=== PATIENT | male | born 1995 | race Caucasian/White ===

== ENCOUNTER 2020-04-20 08:00 | Outpatient (RCR) | payer OTHER, SELFPAY ==
--- NOTE | 2020-04-19 08:24 | OTOPEVAL ---
EVALUATION REPORT AND DISCHARGE SUMMARY 04/19/20 Patient presents for outpatient OT evaluation after being admitted to the ICU x9 days following a seizure, skull fracture, and brain bleed. He and his girlfriend both report that he is improving with strength and endurance every day. OT evaluation reveals intact, symmetrical, and functional strength and coordination of bilateral UEs. Oculo-motor and visual perceptual assessments show no abnormalities. Recommended to the patient to gradually increase his activity levels regarding his functional endurance in prep for return to work. No skilled OT is indicated at this time. Thank you for referring Jordi Neville to [facility] [place].? Please review, sign, date and return this D/C ELSA. I agree with and certify that the following plan of care is medically necessary. Referring Physician Date Referring Provider: Adiel Joshi, DO *OT Outpatient Evaluation Therapy Assessment Status Assessment Status Assessment Status Evaluation Outpatient Past Medical History Neurological History Hx Seizures Yes: 03/18/20 Musculoskeletal History Hx Fractures Yes: Right elbow 2017; Skull fx after seizure 2020 Other History Hx Cancer Yes: Skin CA, removed Evaluation Information Problem Diagnosis seizure, skull fracture, brain bleed Onset 03/18/20 Subjective Information Patient reports that he spent Query Text:As Reported By Patient/ 9 days in the ICU following Family seizure and fall where he sustained a left posterior skull fracture. He states that he did not need to have surgery. Functionally he reports having generalized weakness, some blurred vision when trying to read, and sometimes having difficulty thinking of words. He and his girlfriend report that he is improving daily. 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
--- NOTE | 2020-04-19 10:09 | PTOPEVAL ---
PHYSICAL THERAPY EVALUATION AND DISCHARGE 04-19-20 Thank you for referring Jordi Neville to [facility].? The PT evaluation was completed today, he was issued home exercises and education was provided on gradual increase in activity level. Please review, sign, date and return this discharge ELSA. I agree with and certify that the following plan of care is medically necessary. Referring Physician Date Attending Provider: Adiel Joshi, *PT Outpatient Evaluation Document 04/19/20 09:00 IVAN (Rec: 04/19/20 10:03 IVAN [id number]) Outpatient Past Medical History Past Medical History Source of Past Medical History Recalled from Previous Visit, Confirmed with Patient/Family Neurological History Hx Seizures Yes: 03/18/20--med control Cardiovascular History Hx Cardiac Disorders No Significant History Respiratory History Hx Respiratory Disorders No Significant History Musculoskeletal History Hx Fractures Yes: Right elbow 2017; Skull fx after seizure 2020 Hematological History Hx Hematological Disorders No Significant History Endocrine History Hx Endocrine Disorders No Significant History HEENT History Hx HEENT Disorders No Significant History Other History Hx Cancer Yes: Skin CA, removed Evaluation Information Problem Diagnosis seizure disorder Onset 03-18-20 Subjective Information fell with skull fracture and Query Text:As Reported By Patient/ seizure; no surgery; on Family meds for seizure Prior Level of Function Activity Level (Last 3 Months) Occupation work at [employer], lift up to 50#; 12 hour shifts Activity of Daily Living Ability Independent Indoor/Home Mobility Independent Community Mobility Independent Stairs Ability Independent Functional Cognition (Planning, Shopping Independent , Taking Medications) Cooking Yes Cleaning Yes Laundry Yes Shopping Yes Driving Yes Comments Additional Prior Level of Function prior to seizure--active and Comments not limitations in actiivty level; snow board, skate board , active and working 12 hour shifts; since seizure, resting and gradual increase with activity level: walking dog about 1/2 mile, watch TV about 4 hours; after about 45 minutes of activity, need to rest 5-10
--- NOTE | 2020-04-20 09:39 | STOPEVAL ---
Outpatient Speech Therapy Evaluation and Discharge: Patient presents for outpatient ST evaluation after being admitted to the ICU x9 days following a seizure, skull fracture, and brain bleed. He and his spouse report that he seems to be improving every day with recall and memory. Upon completion of (SCATBI) Scales of Cognitive Ability for Traumatic Brain Injury, it has been determine that Jordi's cognitive linguistic skills are within functional limits; therefore, no further speech therapy is warranted at this time. Please review, sign, date and return this discharge ELSA. I agree with and certify that the following plan of care is medically necessary. Referring Physician Date Attending Provider & Referring Provider: Adiel Joshi, DO *ST Outpatient Evaluation Therapy Assessment Status Assessment Status patient Past Medical History Past Medical History Source of Past Medical History Recalled from Previous Visit, Confirmed with Patient/Family Neurological History Hx Seizures Yes: 03/18/20--med control Cardiovascular History Hx Cardiac Disorders No Significant History Respiratory History Hx Respiratory Disorders No Significant History Musculoskeletal History Hx Fractures Yes: Right elbow 2017; Skull fx after seizure 2020 Hematological History Hx Hematological Disorders No Significant History Endocrine History Hx Endocrine Disorders No Significant History HEENT History Hx HEENT Disorders No Significant History Other History Hx Cancer Yes: Skin CA, removed Evaluation Information Problem Diagnosis seizure, skull fracture, brain bleed Onset 03-18-20 Cause cause of seizure is unknown Additional Evaluation Detail Pt had a seizure which resulted in a fall with a subsequent brain bleed and skull fracture. No surgery but he is now on seizure medication. Prior to seizure, pt was independent with all activities of daily living. Subjective Information pt is very pleasant and Query Text:As Reported By Patient/ cooperative. he is motivated Family to drive again and eventually wants to return to work. 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
== END 2020-07-05 10:03 | disposition home or self-care (01) ==
LOC: ANHST 08:00
PROVIDERS: PCP Family Medicine; Referring Provider Family Medicine; Visit Provider Family Medicine
DX: G40.909 Epilepsy, unspecified, not intractable, without status epilepticus (principal); S02.91XD Unspecified fracture of skull, subsequent encounter for fracture with routine healing
CPT/HCPCS: 96125; 97161; 97165

== ENCOUNTER 2022-10-10 15:41 | Emergency (ER) | payer OTHER, SELFPAY ==
--- NOTE | ~2022-10-10 | XR_ITS ---
EXAMINATION: XR chest 2V Exam Date/Time: 10/10/2022 16:13 CDT HISTORY: palpitations Comparison: None. RESULT: Lines, tubes, and devices: None. Lungs and pleura: Clear. Cardiomediastinal silhouette: Stable. Other: No acute osseous or upper abdominal finding. IMPRESSION: No acute cardiopulmonary process. Reviewed, dictated and finalized at location K.
--- NOTE | 2022-10-10 15:43 | ECG_ITS ---
Measurements Intervals [place] Rate: 88 P: 81 NC: 160 QRS: 63 QRSD: 94 T: 62 QT: 336 QTc: 407 Interpretive Statements SINUS RHYTHM EARLY REPOLARIZATION [ST ELEVATION WITH NORMALLY INFLECTED T-WAVE] OTHERWISE NORMAL ECG NO PREVIOUS ECG AVAILABLE FOR COMPARISON Electronically Signed On 10-11-2022 9:14:39 CDT by Jeff Sanchez M.D.
[2022-10-10 16:08] VITALS: BP 155/85; PULSE 87; RESP 16; TEMP 36.9; O2SAT 100
[2022-10-10 16:25] LABS: Basophils Absolute Auto 0.1 K/mm3 (0.0-0.1); Basophils Percent Auto 1.1 % (0.2-1.2); Eosinophils Absolute Auto 0.1 K/mm3 (0-0.3); Eosinophils Percent Auto 0.9 % (0-4.4); Hematocrit 39.6 % (42.0-52.0); Immature Granulocyte Absolute 0.01 K/mm3 (0.00-0.031); Immature Granulocyte Percent A 0.2 % (0-0.5); Lymphocytes Absolute Auto 1.44 K/mm3 (0.9-3.2); Lymphocytes Percent Auto 26.8 % (18.3-44.2); Mean Corpuscular HGB Conc 35.4 g/dl (32-36); Mean Corpuscular Hemoglobin 32.6 pg (26-34); Mean Corpuscular Volume 92.1 fl (80-100); Mean Platelet Volume 8.9 fl (7.4-10.4); Monocytes Absolute Auto 0.5 K/mm3 (0.1-0.6); Neutrophils Absolute Auto 3.3 K/mm3 (1.3-6.7); Platelet Count Result 249 k/mm3 (150-375); Red Cell Distribution Width 11.2 % (11.5-14.5); White Blood Count 5.4 K/mm3 (4.5-10.0)
[2022-10-10 16:35] LABS: Alanine Aminotransferase 34 U/L (6-50); Albumin Level 4.8 g/dL (3.5-5.1); Alkaline Phosphatase 54 U/L (38-126); Anion Gap 13 mmol/L (8-16); Aspartate Amino Transferase 33 U/L (17-59); Bilirubin,Total 0.8 mg/dL (0.2-1.3); Blood Urea Nitrogen 15 mg/dL (9-20); Calcium 9.4 mg/dL (8.4-10.2); Carbon Dioxide 22 mmol/L (22-30); Chloride 100 mmol/L (98-107); Estimated CRCL calculation 128 ml/min; Estimated Glomerular Filt Rate > 60; Glucose 89 mg/dL (65-110); Lipase 67 U/L (23-300); Potassium 3.9 mmol/L (3.4-5.0); Sodium 135 mmol/L (137-145)
[2022-10-10 16:44] LABS: Prothrombin Time 13.3 Seconds (11.1-14.7)
[2022-10-10 16:46] LABS: Partial Thromboplastin Time 31.3 SECONDS (22.3-36.8); Troponin I < 0.012 ng/mL (0.000-0.034)
[2022-10-10 17:15] LABS: D Dimer 0.28 ug/mL (<0.48)
[2022-10-10 20:29] VITALS: BP 146/85; PULSE 67; RESP 15; TEMP 36.4; O2SAT 100
[2022-10-10 20:59] LABS: Troponin I < 0.012 ng/mL (0.000-0.034)
[2022-10-10 22:59] VITALS: BP 153/97; PULSE 64; PULSE 71; RESP 13; O2SAT 100
[2022-10-10 23:31] VITALS: PULSE 58; RESP 12; O2SAT 100
[2022-10-10 23:59] LABS: Troponin I < 0.012 ng/mL (0.000-0.034)
[2022-10-11 00:15] LABS: Magnesium 2.2 mg/dL (1.6-2.3)
--- NOTE | 2022-10-11 00:37 | ED.GENADULT ---
HPI - General Adult General Chief complaint: Arrhythmia/Palpitations Stated complaint: having heart issues Time Seen by Provider: 10/10/22 23:23 History of Present Illness HPI narrative: Patient is a 26-year-old gentleman who presents the emergency department with chief complaint of palpitations. Patient states that for several days has been having a feeling as though his heart is been beating heavy patient did have an episode where he felt as though his heart was beating fast he did get diaphoretic and reports that he felt lightheaded the patient states it lasted about 30 minutes several days ago and the patient since then has been feeling this way. Patient denies chest pain denies syncope patient reports no prior history of inheritable diseases denies history of Marfan's or other diagnosed protein C protein S deficiency history of clotting. Related Data Allergies Allergy/AdvReac Type Severity Reaction Status Date / Time No Known Allergies Allergy Verified 10/10/22 23:01 Review of Systems Review of Systems: A 10 system review of systems was completed on the patient and is negative except for what is stated in the HPI. Nursing and ancillary documentation was reviewed. Exam Narrative: GENERAL: Well-appearing, well-nourished, and in no acute distress. HEAD: Normocephalic, atraumatic. EYES: PERRLA and EOMI. ENT: Nares clear, no rhinorrhea or epistaxis. Mucous membranes moist. NECK: Supple. CHEST: Clear to auscultation. No respiratory distress. HEART: Regular rate and rhythm. No murmur heard. Normal peripheral pulses. ABDOMEN: Soft, nontender, nondistended, normal active bowel sounds. EXTREMITIES: Normal range of motion. No edema. SKIN: Warm, dry, no rash. NEURO: No focal deficits. Alert and oriented x3. PSYCH: Normal mood and affect. Course Vital Signs Vital signs: Vital Signs Temperature 36.9 C 10/10/22 16:08 Pulse Rate 87 10/10/22 16:08 Respiratory Rate 16 10/10/22 16:08 Blood Pressure 155/85 H 10/10/22 16:08 Pulse Oximetry 100 10/10/22 16:08 Temperature 36.4 C L 10/10/22 20:29 Pulse Rate 58 L 10/10/22 23:31 Respiratory Rate 12 10/10/22 23:31 Blood Pressure 153/97 H 10/10/22 22:59 Pulse Oximetry 100 10/10/22 23:31 Medical Decision Making MDM Narrative Medical decision making narrative: Differential diagnosis includes electrolyte abnormality, dehydration, dysrhythmia Laboratory studies were obtained which are within normal limits potassium was 3.9 magnesium was 2.2 troponin was less than 0.012 for both 0-hour and 3-hour Chest x-ray showed no focal infiltrate EKG showed early repolarization with a rate of 88 Vital Signs Vital Signs: Vital Signs Temperature 36.9 C 10/10/22 16:08 Pulse Rate 87 10/10/22 16:08 Respiratory Rate 16 10/10/22 16:08 Blood Pressure 155/85 H 10/10/22 16:08 Pulse Oximetry 100 10/10/22 16:08 Temperature 36.4 C L 10/10/22 20:29 Pulse Rate 58 L 10/10/22 23:31 Respiratory Rate 12 10/10/22 23:31 Blood Pressure 153/97 H 10/10/22 22:59 Pulse Oximetry 100 10/10/22 23:31 Lab Data 10/10/22 16:16 10/10/22 16:16 Labs: Lab Results 10/10/22 10/10/22 10/10/22 Range/Units 16:16 16:16 16:16 WBC 5.4 (4.5-10.0) K/mm3 RBC 4.30 L (4.6-6.20) M/mm3 Hgb 14.0 (14.0-18.0) g/dL Hct 39.6 L (42.0-52.0) % MCV 92.1 (80-100) fl MCH 32.6 (26-34) pg MCHC 35.4 (32-36) g/dl RDW 11.2 L (11.5-14.5) % Plt Count 249 (150-375) k/mm3 MPV 8.9 (7.4-10.4) fl Immature Gran % (Auto) 0.2 (0-0.5) % Neut % (Auto) 61.0 (45.5-73.1) % Lymph % (Auto) 26.8 (18.3-44.2) % Craig % (Auto) 10.0 H (2.6-8.5) % Eos % (Auto) 0.9 (0-4.4) % Baso % (Auto) 1.1 (0.2-1.2) % Lymph # (Auto) 1.44 (0.9-3.2) K/mm3 Craig # (Auto) 0.5 (0.1-0.6) K/mm3 Eos # (Auto) 0.1 (0-0.3) K/mm3 Baso # (Auto) 0.1 (0.0-0.1) K/mm3 Ab
[2022-10-11 00:38] VITALS: PULSE 69; RESP 19; O2SAT 100
[2022-10-11 01:12] VITALS: BP 126/87; PULSE 67; RESP 16; O2SAT 97
== END 2022-10-11 01:13 | disposition home or self-care (01) ==
PROVIDERS: Student in an Organized Health Care Education/Training Program; Emergency Provider Emergency Medicine; PCP Family Medicine
DX: R00.2 Palpitations (principal)
CPT/HCPCS: 36415; 71046; 80053; 83690; 83735; 84484; 85025; 85380; 85610; 85730; 93005; 99284